=== PATIENT | female | born 1975 | race Caucasian/White ===

== ENCOUNTER 2021-04-16 13:11 | Emergency (ER) | payer OTHER ==
[~2021-04-16] VITALS: Ht 172.7 cm; Wt 86.2 kg
[2021-04-16 14:03] LABS: HEMOGLOBIN 13.5 gm/dl (12.3-15.3); RED BLOOD COUNT 5.22 M/UL (4.00-5.10); WHITE BLOOD COUNT 5.8 K/UL (4.5-11.0)
[2021-04-16 14:26] LABS: BUN/CREATININE RATIO 17 (0-10)
== END 2021-04-16 17:47 | disposition home or self-care (01) ==
LOC: ER1 13:11
PROVIDERS: Physician Assistant
DX: Z23 Encounter for immunization (principal); U07.1 COVID-19
CPT/HCPCS: 71045; 80053; 82550; 82553; 83605; 83874; 84484; 85025; 85379; 87040; 93005; 99285; J7030; M0243

== ENCOUNTER 2021-08-22 11:24 | Emergency (ER) | payer OTHER ==
[2021-08-22] MEDS ORDERED: OMNICEF 300 MG300 MG PO (12:36)
[2021-08-22] MEDS ORDERED: VALACYCLOVIR1000 MG PO (12:36)
== END 2021-08-22 12:45 | disposition home or self-care (01) ==
LOC: ER1 11:24
DX: N39.0 Urinary tract infection, site not specified (principal); B02.9 Zoster without complications; M54.50 Low back pain, unspecified
CPT/HCPCS: 81001; 84703; 87077; 87086; 87186; 99284